=== PATIENT | male | born 1965 | race Caucasian/White ===

== ENCOUNTER 2018-12-17 08:46 | Day surgery (SDC) | payer OTHER ==
[~2018-12-17] VITALS: Ht 182.9 cm; Wt 85.0 kg
[2018-12-17 09:48] VITALS: BP 142/79; PULSE 51; RESP 22; Ht 182.9 cm; Wt 85.0 kg
[2018-12-17] MEDS ORDERED: FENTAnyl 50 MCG/ML VIAL ONE (10:47)
[2018-12-17] MEDS ORDERED: MIDAZOLAM 1 MG/ML 2 ML INJ ONE ×3 (10:47→10:48)
[2018-12-17 11:11] VITALS: BP 155/96; RESP 18
== END 2018-12-17 12:17 | disposition home or self-care (01) ==
LOC: GIL 08:46
PROVIDERS: ATTEND Internal Medicine Gastroenterology
DX: Z12.11 Encounter for screening for malignant neoplasm of colon (principal); K64.4 Residual hemorrhoidal skin tags
CPT/HCPCS: 45378; J2250; J3010; Z7610